=== PATIENT | male | born 1930 | race Caucasian/White ===

== ENCOUNTER → 2016-10-12 | Outpatient (CLI) | payer OTHER ==
[~2016-10-12] MED LIST: IBUP-1277 PO; LEUP30IN3 IM; SAW PALMETTO; calcium; vitamin D; vitamin c
== END | disposition home or self-care (01) ==
LOC: C.LAB 14:19
PROVIDERS: ATTEND Urology
DX: C61 Malignant neoplasm of prostate (principal)

== ENCOUNTER → 2017-05-24 | Outpatient (CLI) | payer OTHER | END | disposition home or self-care (01) | LOC: C.LAB 11:37 | PROVIDERS: ATTEND Urology | DX: C61 Malignant neoplasm of prostate (principal) ==

== ENCOUNTER → 2017-11-15 | Outpatient (CLI) | payer OTHER | END | disposition home or self-care (01) | LOC: C.LAB 11:54 | PROVIDERS: ATTEND Urology | DX: N40.1 Benign prostatic hyperplasia with lower urinary tract symptoms (principal); C61 Malignant neoplasm of prostate ==

== ENCOUNTER 2019-01-24 20:34 | Inpatient (IN) ==
[2019-01-24] MEDS ORDERED: SODIUM CHLORIDE 0.9% 1000ML 1,000 ML IV SCH (21:00)
[2019-01-24] MEDS: MoRPHine SULFATE 4 MG/ML 1 ML CARP\\VIAL IV PRN ×2 (21:28→23:25)
--- NOTE | 2019-01-24 21:29 | XRay Report ---
SINGLE VIEW PELVIS; 2 VIEWS RIGHT HIP CLINICAL HISTORY: Fall. FINDINGS: An AP view of the pelvis with AP and frog-leg views of the right hip are obtained. No prior studies are available for comparison at the time of dictation. The skeletal structures are osteopeni c. There is an impacted and minimally distracted subcapital fracture of the right femur. No additiona l fracture is seen involving the left hip or bony pelvis. Mild degenerative sclerosis is noted in the sacroiliac joints. Degenerative joint space narrowing is seen in both hips. Mild soft tissue edema o verlies the right hip. Phleboliths are noted in the pelvis. Mild degenerative joint there is atherosc lerotic calcification of the femoral arteries. IMPRESSION: 1. There is an impacted subcapital fracture of the right femur. 2. No additional fracture is seen involving the left hip or bony pelvis. Electronically signed by: Jadiel Mast M.D. 01/24/2019 9:28 PM
[2019-01-24 21:34] LABS: Basophils # (auto) 0.02 K/uL (0-0.2); Basophils % (auto) 0.2 %; Eosinophils # (auto) 0.24 K/uL (0-0.5); Hematocrit (blood only) 39.4 % (42-52); Hemoglobin 12.9 g/dL (14.0-18.0); Immature Granulocytes # (auto) 0.03 K/uL (0.00-0.02); Immature Granulocytes % (auto) 0.4 %; Lymphocytes # (auto) 1.21 K/uL (1.2-3.4); Lymphocytes % (auto) 14.9 %; Mean Corpuscular Hgb Conc 32.7 g/dL (32-36); Mean Corpuscular Volume 92.1 fL (80-100); Mean Platelet Volume 11.6 fL (7.4-10.4); Monocytes # (auto) 0.48 K/uL (0.11-0.59); Monocytes % (auto) 5.9 %; Neutrophils # (auto) 6.13 K/uL (1.4-6.5); Neutrophils % (auto) 75.6 %; Platelet Count 145 K/uL (130-400); RDW Coefficient of Variation 15.4 % (11.5-14.5); RDW Standard Deviation 51.4 fL (36.4-46.3); Red Blood Count 4.28 M/uL (4.7-6.1); White Blood Count 8.11 K/uL (4.8-10.8)
[2019-01-24 21:45] LABS: Partial Thromboplastin Ratio 0.8; Prothrombin Time 10.1 Seconds (9.0-12.0)
[2019-01-24 21:49] LABS: BUN Creatinine Ratio 27.8 (10-20); Calcium 9.2 mg/dl (8.5-10.1); Creatinine Clr Calc Pharmacy 30.7 ml/min; Est GFR (African American) 46.7; Est GFR (Non-African American) 40.3
--- NOTE | 2019-01-24 22:39 | History & Physical Report ---
Date of Service January 24, 2019 Assessment & Plan (1) Hip fracture: 88-year-old male here with mechanical fall and subsequent right femur fracture. Plan -Pain control -Place [place] -Consult orthopedics -N.p.o. after midnight with normal saline fluids maintenance to start at 2 AM. FEN/GI: npo after midnight. NSS @100ml/hr to start at 2am tomorrow. DVT ppx: SCDs, chemical prophylaxis held awaiting possible instrumentation tomorrow CODE STATUS: Full as discussed with patient and family DISPO: MedSurg. PT/OT, CM consult placed for coordination of rehab. Other ongoing medical problems: BPH - takes leupron every few months. Baby ASA - hold (2) Fall: (3) BPH (benign prostatic hyperplasia): (4) Hip pain: History of Present Illness Chief Complaint: hip fracture Primary Care Provider: Edi Núñez MD Chay is an 88-year-old male with past history of BPH who presents after mechanical fall at home and right femur fracture. He has full memory of the event and states that he was in his kitchen preparing food when he turned away from the counter and slipped on the linoleum, caught himself by both hands but then his right hip hit the floor. He states he was able to lift himself up off the floor afterwards with the aid of a chair, was able to point his toes with both feet, but was unable to bear any weight. He was brought in to the emergency room for further management. Otherwise he states he has no other symptoms including headache, blurred vision, chest pain, difficulty breathing, abdominal pain, diarrhea or constipation. He endorses some loss of sensation in his right foot. His and daughter are at the bedside. Past surgical history includes Mohs surgery on his right face for basal cell cancer. Social history includes independent with ADLs, jogs, is very active. Retired day care director. ED course: Hip and pelvis x-ray show impacted subcapital fracture of the right femur. Labs are otherwise unremarkable. Has been given 4 mg of morphine and tolerated this well. Allergies Allergy/AdvReac Type Severity Reaction Status Date / Time thimerosal Allergy Unknown HIVES Unverified 01/24/19 22:25 Home Medications Home Medications Medication Instructions Recorded Confirmed Type aspirin [Aspir-81] 81 mg PO DAILY 01/24/19 01/24/19 History leuprolide 30 mg IM Q6M 01/24/19 01/24/19 History Past Med/Surg History Medical History No chronic problems Family History Other No significant family history Social History Preferred Language: Yoruba Communication Ability: Effective Intensive Care Unit Registered Nurse Required: No Beliefs That Will Affect Care: Baptist Baptist Beliefs: Mosque Current Living Situation: Alone Current Living Situation Comment: [place] ~ 4 days/week Other Information That Helps Us Care for You: No Feels Safe at Home: Yes Safety Concerns: Feels Safe At This Time Smoking Status: Never smoker Do You Dip or Chew Tobacco: No Hx Alcohol Use: No Hx Substance Use: No Review of Systems Review of Systems: All systems reviewed & are unremarkable except as noted in HPI & below Physical Exam Physical Exam: Vitals noted and within normal limits with the exception of hypertension. GENERAL: Awake, alert to person, place, and time, nontoxic-appearing, in no distress. HENT: Normocephalic, atraumatic. Mucus membranes appear moist. EYES: Normal conjunctiva. Sclera non-icteric. EOMI. NECK: Supple. Full range of motion. RESPIRATORY: Clear to auscultation. Normal work of breathing. CARDIAC: Regular rate, normal rhythm. Extremities warm and well perfused, 2+ radial pulses bilaterally; 2+ posterior tibialis pulses bilaterally. ABDOMEN: Soft, non-distended. No tenderness to palpation in all four quadrants. No rebound or guarding. No masses. Bowel sounds are normal. LOWER EXTREMITIES: Inspection of calves reveal equal size bilaterally. Right lower extremity with shortening and external rotation. No edema. No discoloration. NEURO: No gross focal motor deficits noted. Sensation in tact. CN II-XII grossly in tact. Decreased sensation in his right foot. SKIN: Rash not present. No jaundice noted. Significant lesions not present. PSYCH: Appropriate mood and affect. Cooperative. Examined with family at the bedside. Exam as done by Africa Gilbert MD, Chlorine Operator. Results & Data Vital Signs (Past 12 Hours) Vital Signs Temp Pulse Resp BP Pulse Ox 01/24/19 20:43 36.6 C 64 20 203/64 H 93 Laboratory Results 01/24/19 01/24/19 01/24/19 Range/Units 21:13 21:13 21:13 WBC 8.11 (4.8-10.8) K/uL RBC 4.28 L (4.7-6.1) M/uL Hgb 12.9 L (14.0-18.0) g/dL Hct 39.4 L (42-52) % MCV 92.1 (80-100) fL MCH 30.1 (25-34) pg MCHC 32.7 (32-36) g/dL RDW Std Deviation 51.4 H (36.4-46.3) fL RDW Coeff of Chay 15.4 H (11.5-14.5) % Plt Count 145 (130-400) K/uL MPV 11.6 H (7.4-10.4) fL Immature Gran % (Auto) 0.4 % Neut % (Auto) 75.6 % Lymph % (Auto) 14.9 % [place] % (Auto) 5.9 % Eos % (Auto) 3.0 % Baso % (Auto) 0.2 % Immature Gran # (Auto) 0.03 H (0.00-0.02) K/uL Neut # (Auto) 6.13 (1.4-6.5) K/uL Lymph # (Auto) 1.21 (1.2-3.4) K/uL [place] # (Auto) 0.48 (0.11-0.59) K/uL Eos # (Auto) 0.24 (0-0.5) K/uL Baso # (Auto) 0.02 (0-0.2) K/uL PT 10.1 (9.0-12.0) Seconds INR 1.0 (0.9-1.1) APTT 23.0 (21.0-31.0) Seconds PTT Ratio 0.8 Sodium 141 (136-145) mmol/L Potassium 4.0 (3.5-5.1) mmol/L Chloride 111 H (98-107) mmol/L Carbon Dioxide 25 (21-32) mmol/L Anion Gap 5.0 (3-11) BUN 43 H (7-18) mg/dl Creatinine 1.53 H (0.6-1.4) mg/dl Est Cr Clr Drug Dosing 30.7 ml/min Est GFR ( Amer) 46.7 Est GFR (Non-Af Amer) 40.3 BUN/Creatinine Ratio 27.8 H (10-20) Glucose 94 (70-99) mg/dl Calcium 9.2 (8.5-10.1) mg/dl ECG Additional Comments: Sinus bradycardia, rate 59, QTc 471. Supervising Physician Co-Signing Physician Notes Pt seen/examined in conjunction with resident MD Anna Gilbert. Orders and plan of admission formulated with resident. 88 y/o M Hx prostate CA and a pronounced murmur. He fell onto his R side earlier in the evening and suffered an impacted subcapital fracture of the right femur. The pt may have poor medical follow-up per his daughter but does state that he exercises daily and denies any heart disease. OE AAO - tangential and repetitious speech. S1,2 3/6 - likely mitral murmur CTAB NT, ND No CCE P: The pt is pending an ortho eval It is difficult to gauge his surgical risk from his history and considering his murmur we have ordered an echo He is hypertensive on admission as well while denying pain. PRN Hydralazine is ordered. Trend BP to determine if he has untreated HTN. PG Care Time/CCT Total # of Minutes Spent Total Time Spent with Patient: Total time spent is greater than 50% in coordination of care (as documented) at patient's floor/unit and/or counseling patient: Resident Activity Tracking Resident Involvement: Resident Care Provided Care Provided: Adult Hospital Medicine (1) Hip fracture Encounter type: initial encounter Fracture type: closed Laterality: right Qualified Code(s): S72.001A - Fracture of unspecified part of neck of right femur, initial encounter for closed fracture (2) Hip pain Laterality: right Qualified Code(s): M25.551 - Pain in right hip (3) Fall Encounter type: initial encounter Qualified Code(s): W19.XXXA - Unspecified fall, initial encounter
[2019-01-24] MEDS ORDERED: ONDANSETRON INJ 2 MG/ML 2 ML VIAL IV PRN (23:56)
[2019-01-24] MEDS ORDERED: ALUMINUM/MAGNESIUM SUSP 30 ML UDC PO PRN (23:56)
[2019-01-24] MEDS ORDERED: ACETAMINOPHEN 325 MG TAB PO PRN (23:56)
[2019-01-24] MEDS ORDERED: HydrALAZINE HCL 20 MG/ML VIAL IV PRN (23:56)
[2019-01-24] MEDS ORDERED: MAGNESIUM HYDROXIDE SUSP 30 ML UDC PO PRN (23:56)
[2019-01-24] MEDS ORDERED: POLYETHYLENE (MIRALAX) 17 GM PACK PO PRN (23:56)
[2019-01-25 00:13] LABS: Appearance Urine Clear (Clear); Bacteria Urine Automated Negative (Negative); Bilirubin Urine Negative (Negative); Cast Urine Automated 0 /lpf (0-5); Color Urine Yellow; Epithelial Cell Urine Auto 0-5 /lpf (0-5); Glucose Urine UA Negative (Negative); Ketones Urine Trace (Negative); Leukocyte Esterase Urine Negative (Negative); Nitrite Urine Negative (Negative); Protein Urine Negative (Negative); Specific Gravity Urine 1.013 (1.000-1.030); Urobilinogen Urine Negative (Negative); WBC Urine Automated 0 /hpf (0-5)
[2019-01-25] MEDS: MoRPHine SULFATE 4 MG/ML 1 ML CARP\\VIAL IV PRN ×4 (00:27→18:31)
[2019-01-25] MEDS: SODIUM CHLORIDE 0.9% 1000ML 1,000 ML IV SCH ×2 (00:30→09:52)
--- NOTE | 2019-01-25 00:44 | Emergency Department Note ---
Entered by Shalom Ye acting as a scribe for Chente Hawkins MD History of Present Illness General Chief complaint: Hip Pain Stated complaint: FALL, R HIP PAIN Time Seen by Provider: 01/24/19 20:40 Source: patient History of Present Illness Onset (ago): day(s) (today) Location: right (hip) Pain Consistency: + constant Maximum Pain Intensity: 10 Associated symptoms: + other (Negative for LOC.) The patient is an 88 year old male who presents to the ED w/ CC of constant right hip pain beginning today. The patient states that his foot stuck to the wet floor today, causing him to trip and fall onto his right side. He notes that he was able to get up off of the floor, but he reports that he cannot put any weight onto his right leg. The patient states that he did not hit his head or lose consciousness. He notes that he takes a baby aspirin. Home Medications Home Medications Medication Instructions Recorded Confirmed Type aspirin [Aspir-81] 81 mg PO DAILY 01/24/19 01/24/19 History leuprolide 30 mg IM Q6M 01/24/19 01/24/19 History Allergies Allergy/AdvReac Type Severity Reaction Status Date / Time thimerosal Allergy Unknown HIVES Unverified 01/24/19 22:25 Past Med/Surg History Medical History No chronic problems Family History Other No significant family history Social History Preferred Language: [place] Islander Communication Ability: Effective Mill Feeder Required: No Beliefs That Will Affect Care: Spiritism Spiritism Beliefs: Faith Current Living Situation: Alone Current Living Situation Comment: [place] ~ 4 days/week Other Information That Helps Us Care for You: No Feels Safe at Home: Yes Safety Concerns: Feels Safe At This Time Smoking Status: Never smoker Do You Dip or Chew Tobacco: No Hx Alcohol Use: No Hx Substance Use: No Review of Systems See HPI for pertinent positives & negatives. and A total of 10 systems reviewed and were otherwise negative Physical Exam Vital Signs Vital Signs - 24 hr 01/24/19 20:43 01/24/19 21:26 01/24/19 21:43 Temperature 36.6 C Temperature Source Oral Sepsis Recent Fever Within 48 Hours No Sepsis Action Taken by Nursing No Action Required Pulse Rate 64 63 63 Pulse Rate from SpO2 Sensor 63 63 Respiratory Rate 20 14 14 Respiratory Effort / Characteristics Non-Labored Respiratory Depth Normal Blood Pressure 203/64 H 197/84 H Blood Pressure Mean 110 121 Pulse Oximetry 93 93 92 Oxygen Delivery Method Room Air 01/24/19 22:00 01/24/19 22:01 Temperature Temperature Source Sepsis Recent Fever Within 48 Hours Sepsis Action Taken by Nursing Pulse Rate 67 66 Pulse Rate from SpO2 Sensor 67 66 Respiratory Rate 15 10 L Respiratory Effort / Characteristics Respiratory Depth Blood Pressure 183/78 H Blood Pressure Mean 113 Pulse Oximetry 94 92 Oxygen Delivery Method GENERAL: Well appearing, well nourished, NAD, non-toxic, rapid speech noted. HEAD: No head pain. EYE EXAM: Normal conjunctiva. PERRL, no anisocoria and EOM's grossly intact w/o pain. OROPHARYNX: Moist mucous membranes. Grossly normal dentition. NECK: Supple, no nuchal rigidity, no adenopathy, non-tender. No signs of meningismus. No neck pain. LUNGS: Clear to auscultation. Normal chest wall mechanics. HEART: NSR, no MRG. ABDOMEN: Abdomen soft, non-tender, normo-active bowel sounds, no masses, no rebound or guarding. BACK: No CVA TTP. SKIN: No rashes and no bruising. UPPER EXTREMITIES: Upper extremities are grossly normal. LOWER EXTREMITIES: No pitting edema. No calf pain. Legs appear symmetric in length, pain over right hip and proximal thigh, compartments soft, NVI distally, limited ROM secondary to pain. NEURO EXAM: A&O x3, cranial nerves II-XII grossly intact, normal speech, moves all 4 extremities on command w/o issue. Course 2044: The patient was evaluated in room B4. A complete history and physical exam was performed. 2152: Upon reevaluation, the patient is stable. I discussed the findings and the treatment plan with the patient. He expresses agreement and understanding. I spoke with Dr. Patino of the [facility] Hospitalist Service. The patient will be evaluated for further management. Consultations Consultation #1: I reviewed the patient's case with Dr. Patino - Hospitalist, [facility]. He will evaluate the patient for further management. Time: 21:53 Administered Medications Morphine Sulfate (Morphine Sulfate) 4 mg IV Q1H PRN PRN Reason: Severe Pain (Rating 7,8,9,10) Stop: 02/07/19 20:55 Last Admin: 01/25/19 00:27 Dose: 4 mg Documented by: [id number] Admin: 01/24/19 23:25 Dose: 4 mg Documented by: [id number] Admin: 01/24/19 21:28 Dose: 4 mg Documented by: [id number] Discontinued Medications Sodium Chloride (Nss 1000ml) 1,000 mls @ 150 mls/hr IV .[id number] KASSANDRA Stop: 01/25/19 03:39 Last Infusion: 01/24/19 23:58 Dose: 0 mls/hr Documented by: [id number] Admin: 01/24/19 21:27 Dose: 150 mls/hr Documented by: [id number] Medical Decision Making Medical Records Attestation: I reviewed the patient's medical records. Home Medications Current Medication List: was personally reviewed by me Laboratory Data Attestation: I reviewed the patient's lab results. Result diagrams: 01/24/19 21:13 01/24/19 21:13 Lab Results 01/24/19 01/24/19 01/24/19 Range/Units 21:13 21:13 21:13 WBC 8.11 (4.8-10.8) K/uL RBC 4.28 L (4.7-6.1) M/uL Hgb 12.9 L (14.0-18.0) g/dL Hct 39.4 L (42-52) % MCV 92.1 (80-100) fL MCH 30.1 (25-34) pg MCHC 32.7 (32-36) g/dL RDW Std Deviation 51.4 H (36.4-46.3) fL RDW Coeff of Chay 15.4 H (11.5-14.5) % Plt Count 145 (130-400) K/uL MPV 11.6 H (7.4-10.4) fL Immature Gran % (Auto) 0.4 % Neut % (Auto) 75.6 % Lymph % (Auto) 14.9 % [place] % (Auto) 5.9 % Eos % (Auto) 3.0 % Baso % (Auto) 0.2 % Immature Gran # (Auto) 0.03 H (0.00-0.02) K/uL Neut # (Auto) 6.13 (1.4-6.5) K/uL Lymph # (Auto) 1.21 (1.2-3.4) K/uL [place] # (Auto) 0.48 (0.11-0.59) K/uL Eos # (Auto) 0.24 (0-0.5) K/uL Baso # (Auto) 0.02 (0-0.2) K/uL PT 10.1 (9.0-12.0) Seconds INR 1.0 (0.9-1.1) APTT 23.0 (21.0-31.0) Seconds PTT Ratio 0.8 Sodium 141 (136-145) mmol/L Potassium 4.0 (3.5-5.1) mmol/L Chloride 111 H (98-107) mmol/L Carbon Dioxide 25 (21-32) mmol/L Anion Gap 5.0 (3-11) BUN 43 H (7-18) mg/dl Creatinine 1.53 H (0.6-1.4) mg/dl Est Cr Clr Drug Dosing 30.7 ml/min Est GFR ( Amer) 46.7 Est GFR (Non-Af Amer) 40.3 BUN/Creatinine Ratio 27.8 H (10-20) Glucose 94 (70-99) mg/dl Calcium 9.2 (8.5-10.1) mg/dl Imaging Data Radiologist's Impression: Radiology results as stated below per my review and the radiologist's interpretation: SINGLE VIEW PELVIS; 2 VIEWS RIGHT HIP FINDINGS: An AP view of the pelvis with AP and frog-leg views of the right hip are obtained. No prior studies are available for comparison at the time of dictation. The skeletal structures are osteopenic. There is an impacted and minimally distracted subcapital fracture of the right femur. No additional fracture is seen involving the left hip or bony pelvis. Mild degenerative sclerosis is noted in the sacroiliac joints. Degenerative joint space narrowing is seen in both hips. Mild soft tissue edema overlies the right hip. Phleboliths are noted in the pelvis. Mild degenerative joint there is atherosclerotic calcification of the femoral arteries. IMPRESSION: 1. There is an impacted subcapital fracture of the right femur. 2. No additional fracture is seen involving the left hip or bony pelvis. Electronically signed by: Jadiel Mast M.D. 01/24/2019 9:28 PM ECG Data Attestation: I personally reviewed and interpreted this ECG as follows: Indication: other (fall) Rate (beats per minute): 72 Rhythm: normal sinus Findings: + T-wave inversion (in lead 3) Additional Comments: Normal intervals, normal axis, no STS changes. Blood Pressure Blood Pressure Findings: Elevated blood pressure Blood Pressure Disposition: further management by hospitalist VAUGHN Quach The patient is an 88 year old male who presents to the ED w/ CC of right hip pain beginning today. Differential diagnosis: Etiologies such as fracture, dislocation, neurovascular compromise, compartment syndrome, soft tissue injury, as well as others were entertained. Patient was seen and evaluated the bedside. The patient did have a fall prior to arrival. The patient does take a baby aspirin but no other anticoagulant. The patient does have pain over the right hip. The patient does not appear to be asymmetric in length. The patient is neuro intact distally with some decreased range of motion of the right hip secondary to pain. Patient does have good flexion-extension at the ankle. Good pedal pulse. The patient did a blood work completed along with x-rays. The patient does have a hip fracture. I did ask the caser in to inform orthopedics unassigned of a possible case in the morning. The patient's injury is closed with a neuro intact status I do not believe she requires emergent intervention at this time. I did speak with the on-call hospitalist who agreed to further evaluate treat the patient. Patient was subsequently admitted to the medicine service. Impression & Plan Hip fracture, Fall, Hip pain Discharge Plan Visit Data *Final* Discharge Date/Time: 01/24/19 23:30 Chief Complaint: Hip Pain Stated Complaint: FALL, R HIP PAIN ED Provider: Chente Hawkins Discharge Problem: Hip fracture, Fall, Hip pain Patient Disposition: Admitted As Inpatient Discharge Instructions Interventions: ED Discharge Assessment Last Done: 01/24/19 23:30 Discharge Problem: Hip fracture Qualifiers: Encounter type: initial encounter Fracture type: closed Laterality: right Qualified Code(s): S72.001A - Fracture of unspecified part of neck of right femur, initial encounter for closed fracture Fall Qualifiers: Encounter type: initial encounter Qualified Code(s): W19.XXXA - Unspecified fall, initial encounter Hip pain Qualifiers: Laterality: right Qualified Code(s): M25.551 - Pain in right hip The scribe's documentation has been prepared under my direction and personally reviewed by me in its entirety. I confirm that the note above accurately reflects all work, treatment, procedures, and medical decision making performed by me.
[2019-01-25] MEDS ORDERED: Nursing to Pharmacy Communication ONE (09:39)
--- NOTE | 2019-01-25 12:35 | Consultation Report ---
DATE OF ADMISSION: 01/24/2019 CHIEF COMPLAINT: Right hip pain, orthopedic and concern of right hip pain and hip fracture. HISTORY OF PRESENT ILLNESS: Chay is a delightful. He is 88, fully cognizant. He has a ground level fall injuring his right femur late last evening, suffered a displaced fracture, right femoral neck. He was brought to the hospital via emergency transport, evaluated and treated, courtesy admitted to the medicine service. We are serving as consulting physician. He presents to me today seeing him about 11:30 in the morning of today, January 25 with moderate hip pain, but no difficulty at rest. PAST MEDICAL HISTORY: No hypertension, COPD, diabetes, carcinoma. MEDICATIONS: Aspirin, leuprolide. ALLERGIES: THIMEROSAL. PAST SURGICAL HISTORY: He does have a history of Mohs procedure for basal cell carcinoma. REVIEW OF SYSTEMS: Denies any blurred vision, double vision, tinnitus or vertigo. Denies chest pain, palpitations. Denies nausea, vomiting, urgency, frequency, dysuria. OBJECTIVE: GENERAL: He is alert, oriented, pleasant gentleman. VITAL SIGNS: Stable. Blood pressure elevated, though 200/64 upon admission is decreased at this point. Pulse ox 93, pulse 64, respirations 20, temperature is afebrile. HEENT: Pupils react to light and accommodation. Ear, nose and throat are clear. CARDIAC: Normal S1, S2. No S3. LUNGS: Clear to auscultation. No rales, rhonchi or wheezing. ABDOMEN: Soft, nontender, bowel sounds present in all quadrants. EXTREMITIES: His right hip actually lined up fairly well, slight shortening, but no gross external or internal rotation. X-rays demonstrate a displaced femoral neck fracture of the right hip. IMPRESSION: Right femoral neck fracture, otherwise healthy gentleman, slightly elevated hypertension, probably secondary to pain. PLAN: He is admitted to the medical service. Plan is getting him to orthopedic surgery later on this afternoon. Dr. Contreras has elected to do his surgery and should commence approximately 3:00 or 4:00 this afternoon.
[2019-01-25] MEDS ORDERED: CEFAZOLIN 2000MG 2,000 MG/15 ML SYR IV ONE (14:27)
[2019-01-25] MEDS ORDERED: CEFAZOLIN 2,000 MG/15 ML IV PUSH IV ONE (14:28)
[2019-01-25] MEDS ORDERED: LIDOCAINE HCL 2% 2 ML VIAL/AMP(20MG/ML) INFIL ONE (14:33)
[2019-01-25] MEDS ORDERED: PROPOFOL IV EMULSION 10 MG/ML 20 ML VIAL IV ONE (14:33)
[2019-01-25] MEDS ORDERED: fentaNYL citrate 100 MCG/2 ML VIAL ONE ×2 (14:33→17:29)
[2019-01-25] MEDS ORDERED: MIDAZOLAM HCL 1 MG/ML 2ML VIAL ONE ×2 (14:33→17:28)
--- NOTE | 2019-01-25 14:36 | Hospitalist Progress Note ---
Date of Service January 25, 2019 Assessment & Plan (1) Hip fracture: This pt is an 88-year-old male with a h/o prostate CA and enlarged prostate here with mechanical fall and subsequent right femur fracture. Appreciate Ortho management-plan for surgery today He is quite active with no cardiac history. He does have moderate MR and MVP, mod PHTN, preserved EF with mild hypokinesis mid-apical wall. He can easily achieve >4 METS and has never had angina or dyspnea on exertion. His functional capacity is excellent for age and his valvular issues are not limiting. He is at average risk for perioperative CV complication and due to the hip fracture and high risk of complication if he doesn't have repair, it is recommended that he proceed with hip repair as planned without further evaluation. His valvular disease can be followed as an outpt Discussed this with pt and his daughter at the bedside. -will need preop antibiotics -pain control, bowel regimen -post-op management as per Ortho -continue IVFs -ASA from home was held for surgery but can be restarted for DVT prophylaxis post-op (2) Fall: (3) History of prostate cancer: -is on lupron (4) Mitral regurgitation: moderate on ECHO, with murmur Not limiting, no CHF Follow clinically and as outpt (5) Mitral valve prolapse: on ECHO (6) Pulmonary hypertension: on ECHO, not limiting, no chronic lung disease, unclear cause (7) DVT prophylaxis: SCDs Dispo-remain hospitalized for hip fracture repair Subjective Pt having pain in right hip but otherwise feels weell. Reports he jogs in place in his basement frequently and never has chest pain or SOB with this. He was told he had a "slight murmur" 3 years ago by his PCP. Denies any cardiac issues. Review of Systems Review of Systems: All systems reviewed & are unremarkable except as noted in HPI & below Physical Exam Constitutional: WD/WN, vitals as above Eyes: PERRL, conjunctivae normal, anicteric sclerae ENMT: external ear and nose normal, oropharynx normal Neck: trachea midline, no thyromegaly Respiratory: normal respiratory effort, lungs clear to auscultation Cardiovascular: Rate/Rhythm: regular rate and regular rhythm Heart Sounds: + murmur (3/6 holosystolic murmur at apex) Gastrointestinal (Abdomen): normal bowel sounds, soft, nontender, no hepatosplenomegaly Musculoskeletal: Extremities: + extremities abnormal to inspection (mild shortening of RLE, no TTP over right hip), no cyanosis and no clubbing Skin: no rashes, warm and dry Neurologic: moves all extremities (can move feet, not moving right hip) and awake Psychiatric: A+Ox3, euthymic affect Genitourinary: no testicular masses, no penis abnormality (with condom catheter in place) Results & Data Vital Signs (Past 12 Hours) Vital Signs Temp Pulse Resp BP BP Pulse Ox 01/25/19 08:08 140/67 01/25/19 07:15 37.1 C 65 16 180/76 H 93 Laboratory Results 01/25/19 01/24/19 01/24/19 Range/Units 00:00 21:13 21:13 WBC (4.8-10.8) K/uL RBC (4.7-6.1) M/uL Hgb (14.0-18.0) g/dL Hct (42-52) % MCV (80-100) fL MCH (25-34) pg MCHC (32-36) g/dL RDW Std Deviation (36.4-46.3) fL RDW Coeff of Chay (11.5-14.5) % Plt Count (130-400) K/uL MPV (7.4-10.4) fL Immature Gran % (Auto) % Neut % (Auto) % Lymph % (Auto) % Ida % (Auto) % Eos % (Auto) % Baso % (Auto) % Immature Gran # (Auto) (0.00-0.02) K/uL Neut # (Auto) (1.4-6.5) K/uL Lymph # (Auto) (1.2-3.4) K/uL Ida # (Auto) (0.11-0.59) K/uL Eos # (Auto) (0-0.5) K/uL Baso # (Auto) (0-0.2) K/uL PT 10.1 (9.0-12.0) Seconds INR 1.0 (0.9-1.1) APTT 23.0 (21.0-31.0) Seconds PTT Ratio 0.8 Sodium 141 (136-145) mmol/L Potassium 4.0 (3.5-5.1) mmol/L Chloride 111 H (98-107) mmol/L Carbon Dioxide 25 (21-32) mmol/L Anion Gap 5.0 (3-11) BUN 43 H (7-18) mg/dl Creatinine 1.53 H (0.6-1.4) mg/dl Est Cr Clr Drug Dosing 30.7 ml/min Est GFR ( Amer) 46.7 Est GFR (Non-Af Amer) 40.3 BUN/Creatinine Ratio 27.8 H (10-20) Glucose 94 (70-99) mg/dl Calcium 9.2 (8.5-10.1) mg/dl Urine Color Yellow Urine Appearance Clear (Clear) Urine pH 6.0 (4.5-7.5) Ur Specific [place] 1.013 (1.000-1.030) Urine Protein Negative (Negative) Urine Glucose (UA) Negative (Negative) Urine Ketones Trace H (Negative) Urine Blood Trace H (Negative) Urine Nitrite Negative (Negative) Urine Bilirubin Negative (Negative) Urine Urobilinogen Negative (Negative) Ur Leukocyte Esterase Negative (Negative) Urine WBC (Auto) 0 (0-5) /hpf Urine RBC (Auto) 0-4 (0-4) /hpf U Hyaline Cast (Auto) 0 (0-5) /lpf U Epithel Cells (Auto) 0-5 (0-5) /lpf Urine Bacteria (Auto) Negative (Negative) 01/24/19 Range/Units 21:13 WBC 8.11 (4.8-10.8) K/uL RBC 4.28 L (4.7-6.1) M/uL Hgb 12.9 L (14.0-18.0) g/dL Hct 39.4 L (42-52) % MCV 92.1 (80-100) fL MCH 30.1 (25-34) pg MCHC 32.7 (32-36) g/dL RDW Std Deviation 51.4 H (36.4-46.3) fL RDW Coeff of Chay 15.4 H (11.5-14.5) % Plt Count 145 (130-400) K/uL MPV 11.6 H (7.4-10.4) fL Immature Gran % (Auto) 0.4 % Neut % (Auto) 75.6 % Lymph % (Auto) 14.9 % Ida % (Auto) 5.9 % Eos % (Auto) 3.0 % Baso % (Auto) 0.2 % Immature Gran # (Auto) 0.03 H (0.00-0.02) K/uL Neut # (Auto) 6.13 (1.4-6.5) K/uL Lymph # (Auto) 1.21 (1.2-3.4) K/uL Ida # (Auto) 0.48 (0.11-0.59) K/uL Eos # (Auto) 0.24 (0-0.5) K/uL Baso # (Auto) 0.02 (0-0.2) K/uL PT (9.0-12.0) Seconds INR (0.9-1.1) APTT (21.0-31.0) Seconds PTT Ratio Sodium (136-145) mmol/L Potassium (3.5-5.1) mmol/L Chloride (98-107) mmol/L Carbon Dioxide (21-32) mmol/L Anion Gap (3-11) BUN (7-18) mg/dl Creatinine (0.6-1.4) mg/dl Est Cr Clr Drug Dosing ml/min Est GFR ( Amer) Est GFR (Non-Af Amer) BUN/Creatinine Ratio (10-20) Glucose (70-99) mg/dl Calcium (8.5-10.1) mg/dl Urine Color Urine Appearance (Clear) Urine pH (4.5-7.5) Ur Specific [place] (1.000-1.030) Urine Protein (Negative) Urine Glucose (UA) (Negative) Urine Ketones (Negative) Urine Blood (Negative) Urine Nitrite (Negative) Urine Bilirubin (Negative) Urine Urobilinogen (Negative) Ur Leukocyte Esterase (Negative) Urine WBC (Auto) (0-5) /hpf Urine RBC (Auto) (0-4) /hpf U Hyaline Cast (Auto) (0-5) /lpf U Epithel Cells (Auto) (0-5) /lpf Urine Bacteria (Auto) (Negative) Diagnostic Findings ECHO with LVEF 50-55%, mild mid-apical hypokinesis, mod MR with MVP, mod PHTN ECG reviewed: SB, 1st degree AV block, no ischemic changes PG Care Time/CCT Total # of Minutes Spent Total Time Spent with Patient: Total time spent is greater than 50% in coordination of care (as documented) at patient's floor/unit and/or counseling patient: (1) Hip fracture Encounter type: initial encounter Fracture type: closed Laterality: right Qualified Code(s): S72.001A - Fracture of unspecified part of neck of right femur, initial encounter for closed fracture (2) Fall Encounter type: initial encounter Qualified Code(s): W19.XXXA - Unspecified fall, initial encounter
--- NOTE | 2019-01-25 14:50 | History & Physical Bridge Note ---
Date of Service January 25, 2019 History & Physical Bridge Note I have examined the patient, reviewed the History & Physical and in the interval since the performance of the History & Physical I have noted the following changes of clinical significance: Specifically, I will be doing a right hip hemiarthroplasty.
--- NOTE | 2019-01-25 14:59 | Anesthesiology Consultation ---
Date of Service January 25, 2019 Assessment & Plan Chart Review Chart Review: Acceptable Risk for Surgery and Patient NOT seen in Pre Admission Testing Consults Requested none ASA ASA3 Proposed Anesthesia Anesthesia Type: MAC Spinal Risk / Benefits Reviewed With: PT / POA / Parent / Guardian, Accepts Plan and Informed Consent Obtained History Surgery Operation Date: 01/25/19 13:30 Proposed Procedures p Right Anterior Total Hip Arthroplasty - Mario Contreras DO Height/Weight Height: 5 ft 6 in Weight: 66.9 kg Allergies Allergy/AdvReac Type Severity Reaction Status Date / Time thimerosal Allergy Unknown HIVES Unverified 01/24/19 22:25 Medications Home Medications Medication Instructions Recorded Confirmed Last Taken aspirin [Aspir-81] 81 mg PO DAILY 01/24/19 01/24/19 Unknown leuprolide 30 mg IM Q6M 01/24/19 01/24/19 05/25/18 Active Medications Generic Name Dose Route Start Last Admin Trade Name Freq PRN Reason Stop Dose Admin Hydralazine HCl 5 mg 01/24/19 23:56 01/25/19 07:30 Hydralazine Hcl IV 02/23/19 23:55 5 mg Q4H PRN Administration Hypertension Sodium Chloride 1,000 mls @ 100 mls/hr 01/25/19 02:00 01/25/19 09:52 Nss 1000ml IV 02/24/19 01:59 100 mls/hr .Q10H KASSANDRA Administration Morphine Sulfate 4 mg 01/24/19 20:56 01/25/19 09:32 Morphine Sulfate IV 02/07/19 20:55 4 mg Q1H PRN Administration Severe Pain (Rating 7,8,9,10) NPO Date Last Intake of Fluids: 01/24/19 Time Last Intake of Fluids: 22:00 Date Last Intake of Solids: 01/24/19 Time Last Intake of Solids: 22:00 Past Medical History Medical History No chronic problems Exercise / Class Metabolic Activity III < 4 Walking/Shop/Light housework Past Family History Family History Other No significant family history Past Anesthesia History No Hx of Anesthesia Complications and No Family Hx of Anesthesia Complications Social History Smoking Status: Never smoker Do You Dip or Chew Tobacco: No Hx Alcohol Use: No Alcohol Intake Frequency Comment: quit 1972 Hx Substance Use: No Physical Exam Vital Signs Last Vital Signs Temp 36.5 C 01/25/19 14:51 Pulse 77 01/25/19 14:51 Resp 16 01/25/19 14:51 BP 147/78 H 01/25/19 14:51 Pulse Ox 90 01/25/19 14:51 ENMT Mouth: no dentition abnormality Thyromental Distance: > or= 3.5 Finger Breadths Mallampati Class: II Neck normal visual inspection and trachea midline; neck extension not limited Respiratory normal respiratory effort Auscultation: lungs clear to auscultation bilaterally Cardiovascular Rate/Rhythm: regular rate and regular rhythm Heart Sounds: + murmur (at apex) Vessels: no carotid bruit Musculoskeletal Spine: normal cervical ROM Neurologic moves all extremities Motor/Sensory: no sensory deficit Psychiatric Orientation: alert and oriented x 3 Testing Laboratory Results 01/24/19 21:13 01/24/19 21:13 PT 10.1 Seconds (9.0-12.0) 01/24/19 21:13 INR 1.0 (0.9-1.1) 01/24/19 21:13 APTT 23.0 Seconds (21.0-31.0) 01/24/19 21:13 Urine Color Yellow 01/25/19 00:00 Urine Appearance Clear (Clear) 01/25/19 00:00 Urine pH 6.0 (4.5-7.5) 01/25/19 00:00 Ur Specific [place] 1.013 (1.000-1.030) 01/25/19 00:00 Urine Protein Negative (Negative) 01/25/19 00:00 Urine Glucose (UA) Negative (Negative) 01/25/19 00:00 Urine Ketones Trace (Negative) H 01/25/19 00:00 Urine Nitrite Negative (Negative) 01/25/19 00:00 Ur Leukocyte Esterase Negative (Negative) 01/25/19 00:00 Urine WBC (Auto) 0 /hpf (0-5) 01/25/19 00:00 Urine RBC (Auto) 0-4 /hpf (0-4) 01/25/19 00:00 U Hyaline Cast (Auto) 0 /lpf (0-5) 01/25/19 00:00 U Epithel Cells (Auto) 0-5 /lpf (0-5) 01/25/19 00:00 Urine Bacteria (Auto) Negative (Negative) 01/25/19 00:00 Electrocardiogram Date: 01/24/19 Findings: + SB @ (at 59 w / 1st degree AVB) Echocardiogram Date: 01/25/19 EF: 50 Other Findings: + LVH (mild) Valvular Disease: + AI (mild - moderate), + MR (moderate) and + pertinent finding (moderate pulmonary HTN)
[2019-01-25] MEDS ORDERED: LACTATED RINGER'S 1,000 ML IV SCH (15:00)
[2019-01-25] MEDS ORDERED: KETAMINE HCL INJ 50 MG/ML 10 ML VIAL ONE (15:10)
[2019-01-25] MEDS ORDERED: ASPIRIN 81 MG ECTAB PO SCH (16:00)
[2019-01-25] MEDS ORDERED: METOPROLOL TARTRATE 1 MG/ML VIAL IV ONE (16:09)
[2019-01-25] MEDS: METOPROLOL TARTRATE 1 MG/ML VIAL IV SCH ×2 (16:11→18:38)
[2019-01-25] MEDS ORDERED: NiCARDipine HCL INJ 2.5 MG/ML 10 ML AMP ONE (17:29)
[2019-01-25] MEDS ORDERED: NITROGLYCERIN/D5W 100MCG/ML 20ML SYR ONE (17:29)
[2019-01-25] MEDS ORDERED: HEPARIN (PORCINE) 1000 UNIT/ML 10 ML (CATH LAB USE ONLY) ONE (17:29)
--- NOTE | 2019-01-25 17:33 | Anesthesiology Progress Note ---
Date of Service January 25, 2019 Pt was scheduled to have a right hip fx ORIF. Chart reviewed ,pt seen and examined. Informed consent was obtained. In OR ,pt was placed in LLD position after ketamine 10 mg iv was administered. Using sterile technique and gown,SAB was attempted x 4 times,but unsuccessful secondary to bone. Further attempts at SAB were aborted. It was decided to administer a GETA. PT was moved to OR table when I noticed EKG changes ,specifically, ST depressions in Lead 11.I ordered a stat 12 lead EKG, which showed ST depressions and ischemia in anterolateral leads. I cancelled case. Pt was transferred to PACU. I ordered Troponins stat. I called Dr Rosette Duffy and discussed the case with her and she arrived soon thereafter.Dr Duffy assum ed care and contacted cardiology. Physical Exam Vital Signs: Last Vital Signs Temp 36.3 C L 01/25/19 16:35 Pulse 67 01/25/19 16:35 Resp 19 01/25/19 16:35 BP 140/73 01/25/19 16:35 Pulse Ox 95 01/25/19 16:35 Results & Data Medications Administered Aspirin (Ecotrin Ectab) 81 mg PO DAILY [facility] Stop: 02/24/19 15:59 Last Admin: 01/25/19 16:35 Dose: 81 mg Documented by: [id number] Hydralazine HCl (Hydralazine Hcl) 5 mg IV Q4H PRN PRN Reason: Hypertension Stop: 02/23/19 23:55 Last Admin: 01/25/19 07:30 Dose: 5 mg Documented by: [id number] Sodium Chloride (Nss 1000ml) 1,000 mls @ 100 mls/hr IV .Q10H KASSANDRA Stop: 02/24/19 01:59 Last Infusion: 01/25/19 14:45 Dose: 0 mls/hr Documented by: [id number] Admin: 01/25/19 09:52 Dose: 100 mls/hr Documented by: [id number] Infusion: 01/25/19 09:01 Dose: 0 mls/hr Documented by: [id number] Admin: 01/25/19 00:30 Dose: 100 mls/hr Documented by: [id number] Metoprolol Tartrate (Lopressor) 5 mg IV Q6H KASSANDRA Stop: 02/24/19 15:59 Last Admin: 01/25/19 16:11 Dose: 5 mg Documented by: [id number] Morphine Sulfate (Morphine Sulfate) 4 mg IV Q1H PRN PRN Reason: Severe Pain (Rating 7,8,9,10) Stop: 02/07/19 20:55 Last Admin: 01/25/19 09:32 Dose: 4 mg Documented by: [id number] Admin: 01/25/19 07:30 Dose: 4 mg Documented by: [id number] Admin: 01/25/19 00:27 Dose: 4 mg Documented by: [id number] Admin: 01/24/19 23:25 Dose: 4 mg Documented by: [id number] Admin: 01/24/19 21:28 Dose: 4 mg Documented by: [id number]
--- NOTE | 2019-01-25 17:34 | Anesthesiology Progress Note ---
Date of Service January 25, 2019 Anesthesia Post Procedure Vital Signs Vital Signs: Temp Pulse Pulse Pulse Resp BP BP 01/25/19 16:35 36.3 C L 67 19 140/73 01/25/19 16:25 66 16 147/79 H 01/25/19 16:15 72 18 153/73 H 01/25/19 16:11 80 135/75 01/25/19 16:05 81 12 136/62 01/25/19 15:55 85 17 162/86 H 01/25/19 15:48 36.1 C L 82 13 164/89 H 01/25/19 14:51 36.5 C 77 16 01/25/19 08:08 140/67 01/25/19 07:15 37.1 C 65 16 01/24/19 23:45 36.9 C 68 16 159/79 H 01/24/19 23:30 69 69 18 173/73 H 01/24/19 23:26 71 16 01/24/19 23:01 69 25 H 01/24/19 23:00 71 22 211/89 H 01/24/19 22:01 66 10 L 01/24/19 22:00 67 15 183/78 H 01/24/19 21:43 63 14 01/24/19 21:26 63 14 197/84 H 01/24/19 20:43 36.6 C 64 20 203/64 H BP Pulse Ox 01/25/19 16:35 95 01/25/19 16:25 94 01/25/19 16:15 95 01/25/19 16:11 01/25/19 16:05 92 01/25/19 15:55 96 01/25/19 15:48 92 01/25/19 14:51 147/78 H 90 01/25/19 08:08 01/25/19 07:15 180/76 H 93 01/24/19 23:45 90 01/24/19 23:30 172/73 H 99 01/24/19 23:26 172/79 H 98 01/24/19 23:01 01/24/19 23:00 01/24/19 22:01 92 01/24/19 22:00 94 01/24/19 21:43 92 01/24/19 21:26 93 01/24/19 20:43 93 Pain Intensity Right Hip: Pain Intensity: 10 Transfer of Care Handoff Completed per policy Notes Mental Status: alert / awake / arousable Patient Amnestic to Procedure: Yes Nausea / Vomiting: adequately controlled Pain: adequately controlled Airway Patency, RR, SpO2: stable & adequate BP & HR: stable & adequate Hydration State: stable & adequate Anesthetic Complications: no major complications apparent Notes: see progress note
--- NOTE | 2019-01-25 17:35 | XRay Report ---
XR chest 1V portable CLINICAL HISTORY: HERAT ALERT ATYPICAL CHEST PAIN COMPARISON STUDY: No previous studies for comparison. FINDINGS: The heart is mildly enlarged. There is no failure. There is no lobar consolidation. Bilater al upper lung zone lying shadows likely represent skin folds. There are biapical calcifications. Ther e are no pleural effusions.[ IMPRESSION: 1. Mild cardiomegaly 2. No evidence of focal pulmonary consolidation 3. Bilateral line shadows, are felt to represent skin folds Electronically signed by: Kashmir Liao M.D. 01/25/2019 5:33 PM
[2019-01-25] MEDS ORDERED: NITROGLYCERIN/D5W 100 MCG/ML BTL ONE (18:00)
[2019-01-25] MEDS ORDERED: HEPARIN 25000 UNIT/500 ML D5W IV ONE (18:00)
--- NOTE | 2019-01-25 18:18 | Pre Anesthesia Assessment ---
Date of Service January 25, 2019 Pre Sedation Assessment Vital Signs Temp Pulse Pulse Pulse Resp BP BP 01/25/19 16:35 36.3 C L 67 19 140/73 01/25/19 16:25 66 16 147/79 H 01/25/19 16:15 72 18 153/73 H 01/25/19 16:11 80 135/75 01/25/19 16:05 81 12 136/62 01/25/19 15:55 85 17 162/86 H 01/25/19 15:48 36.1 C L 82 13 164/89 H 01/25/19 14:51 36.5 C 77 16 01/25/19 08:08 140/67 01/25/19 07:15 37.1 C 65 16 01/24/19 23:45 36.9 C 68 16 159/79 H 01/24/19 23:30 69 69 18 173/73 H 01/24/19 23:26 71 16 01/24/19 23:01 69 25 H 01/24/19 23:00 71 22 211/89 H 01/24/19 22:01 66 10 L 01/24/19 22:00 67 15 183/78 H 01/24/19 21:43 63 14 01/24/19 21:26 63 14 197/84 H 01/24/19 20:43 36.6 C 64 20 203/64 H BP Pulse Ox 01/25/19 16:35 95 01/25/19 16:25 94 01/25/19 16:15 95 01/25/19 16:11 01/25/19 16:05 92 01/25/19 15:55 96 01/25/19 15:48 92 01/25/19 14:51 147/78 H 90 01/25/19 08:08 01/25/19 07:15 180/76 H 93 01/24/19 23:45 90 01/24/19 23:30 172/73 H 99 01/24/19 23:26 172/79 H 98 01/24/19 23:01 01/24/19 23:00 01/24/19 22:01 92 01/24/19 22:00 94 01/24/19 21:43 92 01/24/19 21:26 93 01/24/19 20:43 93 Cardiovascular RRR, no murmur, no edema Respiratory normal respiratory effort, lungs clear to auscultation Pre-Sedation Airway Assessment Smoking Status: Never smoker Hx Sleep Apnea: No Hx Difficult Intubation: No Short, Thick Neck: No Thyromental Distance: > or= 3.5 Finger Breadths Mallampati Class: II Procedure Planning Contraindications for Sedation: none Current Medications Reviewed: Yes Notes The planned sedation has been discussed with the patient. Informed Consent was obtained. I have identified the patient, determined the appropriateness of sedation and have assessed the patient immediately prior to the procedure. All medicine(s) and interventions are by my order.
--- NOTE | 2019-01-25 18:19 | Post Anesthesia Assessment ---
Date of Service January 25, 2019 Post Sedation Assessment Vital Signs Temp Pulse Pulse Pulse Resp BP BP 01/25/19 16:35 36.3 C L 67 19 140/73 01/25/19 16:25 66 16 147/79 H 01/25/19 16:15 72 18 153/73 H 01/25/19 16:11 80 135/75 01/25/19 16:05 81 12 136/62 01/25/19 15:55 85 17 162/86 H 01/25/19 15:48 36.1 C L 82 13 164/89 H 01/25/19 14:51 36.5 C 77 16 01/25/19 08:08 140/67 01/25/19 07:15 37.1 C 65 16 01/24/19 23:45 36.9 C 68 16 159/79 H 01/24/19 23:30 69 69 18 173/73 H 01/24/19 23:26 71 16 01/24/19 23:01 69 25 H 01/24/19 23:00 71 22 211/89 H 01/24/19 22:01 66 10 L 01/24/19 22:00 67 15 183/78 H 01/24/19 21:43 63 14 01/24/19 21:26 63 14 197/84 H 01/24/19 20:43 36.6 C 64 20 203/64 H BP Pulse Ox 01/25/19 16:35 95 01/25/19 16:25 94 01/25/19 16:15 95 01/25/19 16:11 01/25/19 16:05 92 01/25/19 15:55 96 01/25/19 15:48 92 01/25/19 14:51 147/78 H 90 01/25/19 08:08 01/25/19 07:15 180/76 H 93 01/24/19 23:45 90 01/24/19 23:30 172/73 H 99 01/24/19 23:26 172/79 H 98 01/24/19 23:01 01/24/19 23:00 01/24/19 22:01 92 01/24/19 22:00 94 01/24/19 21:43 92 01/24/19 21:26 93 01/24/19 20:43 93 Recovery Score Activity: Moves 4 extremities Respiration: Deep Breath/Cough Circulation: +/-20% PreAnes Value Consciousness: Fully Awake Oxygen Saturation: O2 needed for >90% Post Anesthesia Score: 9 Discharge Sedation Level of Care: Fast Track Phase II Post Sedation Plan On clinical assessment, the patient appears to have tolerated the sedation without complications. Patient is recovering as anticipated. Patient will continue to be monitored by nursing and may be discharged when sedation discharge criteria are met per below protocol. Upon Completions of procedure and additional 15 minutes continue every 5 minute vital signs and the P.A.R. score; then discharge to a Phase I or Fast Track to Phase II per the following guidelines: * Discharge Patient to appropriate Phase II area if PAR is 8 or greater or return to pre- procedure baseline. The post - procedure orders will be as directed. * If PAR score is less than 8 or not return to pre-procedure baseline then patient will follow Phase I monitoring till PAR is reached for Phase II. The Phase I may be done in procedure room or may call to secure a Phase I area. * If naloxone or flumazenil are used for reversal, hold in Phase I for continued monitoring from when last reversal dose was given for a minimum of 60 minutes or longer pending the nurse and/or physician discretion of patient condition before discharge to Phase II. Please call the Sedation Physician to re-evaluate and complete post-note for discharge to Phase II area. Do NOT discharge from procedure sedation or Phase 1 until post- sedation evaluation note is complete by procedure /sedation MD Sedation Discharge Instructions to be given to the patient at discharge to home.
--- NOTE | 2019-01-25 18:26 | Cardiac Catheterization ---
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 Prior to surgery today developed new anterior ST depressions, anterior wall motion abnormality and elevated troponin. No significant chest pain. Hemodynamically stable. Access: 6 Fr right radial artery Catheters: [place] Findings: LM -heavily calcified, distal 90 to 95% acute on chronic distal LM prior to bifurcation LAD - heavily calcified, 90% proximal disease, 40-50% mid segment disease. No significant disease as wraps around apex. very small 1st diagonal with 99% ostial stenosis. moderate caliber 2nd diagonal with 40% proximal disease. Circumflex - Moderate caliber vessel. 20-30% proximal disease. Small high OM1 with severe diffuse disease/ RCA - Dominant, moderate caliber, 30-40% mid segment disease. LVEDP - 14 Arterial Closure: TR Band Summary: 1. Severe acute on chronic distal LM/proximal LAD disease 2. Normal intracardiac filling pressure Recommendations: Transfer to tertiary center for consideration of CABG versus high-risk complex PCI. Start heparin and nitro infusion. Hemodynamics Rest Ao:: 131/53/85 Final Ao: 130/56/86 LV: 122/14 Recommendations Recommendations: PCI without planned CABG Specimens Specimens: None Radiation Exposure (mGy) 676 Contrast (mls) 50 Fluids (cc crystalloids) Fluids (cc crystalloids): 20 Drains Drains: none Anesthesia moderate Procedural Complication(s) None Disposition ICU ACC Data: Software Applications Specialist Cardiac Status Clinical evaluation leading to the procedure CAD Presenation: Non STEMI Anginal Classification: CCS IV Heart Failure: No Cardiogenic Shock within 24 Hours: No Cardiac Arrest within 24 Hours: No Imaging Studies Past 6 Months: Yes Stress Studies Past 6 Months: No Diagnostic Physicians Name: Alexandre Allison MD Status: Urgent Closure Device Percutaneous Entry Location: Radial Closure Device: Radial Band Recommendations: PCI without planned CABG Intraprocedure Events Significant Disection: No Perforation: No
--- NOTE | 2019-01-25 18:49 | Discharge Summary ---
Date of Service January 25, 2019 Admission HPI Per Admitting Provider Chay is an 88-year-old male with past history of BPH who presents after mechanical fall at home and right femur fracture. He has full memory of the event and states that he was in his kitchen preparing food when he turned away from the counter and slipped on the linoleum, caught himself by both hands but then his right hip hit the floor. He states he was able to lift himself up off the floor afterwards with the aid of a chair, was able to point his toes with both feet, but was unable to bear any weight. He was brought in to the emergency room for further management. Otherwise he states he has no other symptoms including headache, blurred vision, chest pain, difficulty breathing, abdominal pain, diarrhea or constipation. He endorses some loss of sensation in his right foot. His and daughter are at the bedside. Past surgical history includes Mohs surgery on his right face for basal cell cancer. Social history includes independent with ADLs, jogs, is very active. Retired consulting solution manager. ED course: Hip and pelvis x-ray show impacted subcapital fracture of the right femur. Labs are otherwise unremarkable. Has been given 4 mg of morphine and tolerated this well. Principal Diagnosis Severe CAD, NSTEMI, Right hip fracture, Discharge Exam Constitutional WD/WN, vitals as above Eyes PERRL, conjunctivae normal, anicteric sclerae Neck trachea midline, no thyromegaly Respiratory normal respiratory effort, lungs clear to auscultation Cardiovascular Rate/Rhythm: regular rate and regular rhythm Heart Sounds: + murmur (3/6 holosystolic murmur at apex) Gastrointestinal (Abdomen) normal bowel sounds, soft, nontender, no hepatosplenomegaly Musculoskeletal Extremities: + extremities abnormal to inspection (mild shortening of RLE, no TTP over right hip), no cyanosis and no clubbing Skin no rashes, warm and dry Neurologic moves all extremities (can move feet, not moving right hip) and awake Psychiatric Orientation: alert, oriented to person, oriented to place and cooperative Insight: good insight Judgement: good judgement Genitourinary no testicular masses, no penis abnormality (with condom catheter in place) Discharge Data Allergies Allergy/AdvReac Type Severity Reaction Status Date / Time thimerosal Allergy Unknown HIVES Unverified 01/24/19 22:25 Consultations 01/24/19 21:54 ED Decision to Admit Stat 01/24/19 23:56 Consult Case Management - Discharge Planning Routine Consult Orthopedic Surgery Routine 01/25/19 15:46 Consult Cardiology Routine 01/25/19 18:42 Burn CD for patient Stat Procedures Performed Operation Date: 01/25/19 13:30 Actual Procedures p Right Anterior Hip Hemiarthroplasty(Right) - Mario Contreras, Operation Date: 01/25/19 17:30 Actual Procedures s Cineradiography w/Routine Exam - Willy Allison MD p Cath, Left with Cors and Vent - Willy Allison MD Ordered Studies 01/25/19 17:22 CL Cath Imgs for PACS use only Stat CXR ECHO x 2 Hospital Course (1) Hip fracture: This pt is an 88-year-old male with a h/o prostate CA and enlarged prostate here with mechanical fall and subsequent right femur fracture. Appreciate Ortho management-plan for surgery today but then had NH as was about to have surgery-surgery aborted -pain control, bowel regimen -management as per Ortho after cardiac issues improved (2) NSTEMI (non-ST elevated myocardial infarction): Had ECHO on admission for preop due to murmur on exam which showed mitral valve prolapse and moderate MR, mod PHTN, preserved EF 50-55% with mild hypokinesis mid-apical wall. He has no known history of CAD and regularly jogs in his basement without difficulty or angina. He went for surgery today and after receiving sedation for his spinal, he had noted ST depressions on monitor and ECG confirmed anterolateral ST depressions. Repeat limited ECHO showed new WMAs in LAD distribution and reduced EF 35%, troponin was 1.4 Cardiac cath with 95% left main disease likely acute on chronic, normal filling pressure on left He developed acute hypoxic resp failure requiring 13L by facemask to maintain sats at 91% and was intubated for airway protection for flight to [facility]. Due to complex lesion and disease and not being a good candidate for CABG, Angiography Nurse here recommended transfer for possible complex intervention at his lesion at [facility]. He was hemodynamically stable throughout. Heparin gtt and Nitro gtt were started after cath. (3) CAD (coronary artery disease), [place] coronary artery: as above (4) Systolic CHF: as above (5) Acute respiratory failure with hypoxia: as above (6) Fall: mechanical fall leading to hip fracture on admission (7) History of prostate cancer: -is on lupron (8) Mitral regurgitation: moderate on ECHO, with murmur Follow clinically and as outpt (9) Mitral valve prolapse: on ECHO (10) Pulmonary hypertension: on ECHO, not limiting, no chronic lung disease, unclear cause (11) DVT prophylaxis: SCDs, heparin gtt Dispo-tranfer urgently by life flight to [facility] for further management as above Accepting physician is Dr. Preciado Total Time Total Time Spent Total Time Spent (In Minutes): >30 min Total Time Includes: Examination of the Patient, Discharge Planning, Medication Reconciliation and Communication With Other Providers (Cardiology) Discharge Plan Discharge Items Patient Disposition: Transfer Acute Care Hospital Reason For Visit: RT HIP FRACTURE Discharge Diagnosis: NSTEMI,Severe CAD, Hip fracture Condition: Critical Discharge Goals: Decrease discomfort, Diagnostic testing, Improve disease control, Learn about illness and Therapeutic intervention Activity: As commented below Lifting: None Exercise/Sports: Rest today Non-emergency contact: Primary Care Provider, Surgeon and Angiography Nurse Call non-emergency contact if: you have any medication questions and your symptoms worsen Follow-up/Referrals: Edi Núñez MD [Primary Care Provider] - Diet: Nothing by mouth Addtl Provider Instructions: Transferred to [facility] Prescriptions: New metoprolol tartrate [Lopressor] 5 mg/5 mL Solution 5 mg IV Q6H Qty: 5 RF: 0 Continued aspirin [Aspir-81] 81 mg Tablet,Delayed Release (Dr/Ec) 81 mg PO DAILY RF: 0 leuprolide 15 mg Kit 30 mg IM Q6M RF: 0 Stand-Alone Forms: [facility] Discharge Orders: Discharge Order (Routine); Ordered 01/25/19 Ordered By: Rosette Duffy Admission Data Admit Date/Time: 01/24/19 22:44 Attending Provider: Rosette Duffy Admit Provider: Africa Gilbert Primary Care Provider: Edi Núñez Other Providers: Papa Patino ; Riley Medina ; Willy Black ; Mario Hercules Service: Intensive Care Unit Other Pending Studies at Discharge: No
[2019-01-25] MEDS ORDERED: RAPID SEQUENCE INDUCTION BAG ONE (19:00)
[2019-01-25] MEDS ORDERED: PHENYLEPHRINE HCL 10 MG/ML VIAL ONE (19:04)
--- NOTE | 2019-01-25 19:05 | Cardiology Consultation ---
Date of Consultation January 25, 2019 Assessment & Plan (1) NSTEMI (non-ST elevated myocardial infarction): 2. Severe acute on chronic distal left main/proximal LAD disease 3. New moderate LV dysfunction, EF 35 to 40% 4. At least moderate eccentric mitral regurgitation 5. Moderate pulmonary hypertension 6. Frequent PVCs 7. Right hip fracture Difficult situation. Patient with heavily calcified, severe distal left main disease. Suspect probably will not be a bypass surgery candidate but recommend evaluation by cardiac surgery. If not a surgical candidate would likely need high risk complex PCI potentially requiring atherectomy and hemodynamic support. Have discussed with [facility] cardiology. They are willing to accept care patient. Will start on heparin and nitroglycerin infusion. With tenuous oxygenation we will plan on intubation prior to transport. Transport via air. Situation discussed with hospitalist, manufacturing engineering technologist and family extensively. History of Present Illness Attending Physician: Rosette Duffy MD History of Present Illness Mr. Mckenzie is a very pleasant 88-year-old man with no prior cardiac history admitted yesterday in the setting of mechanical fall and right hip fracture. Cardiology consulted for dynamic EKG changes. Patient was to undergo right hip fracture repair with orthopedics. Had received ketamine with anesthesia when noted to have new ST depressions on telemetry. EKG confirmed new anterior lateral ST depressions. Repeat echocardiogram showed new anterior, apical severe hypokinesis to akinesis with EF 35%.Troponin elevated at 1.48. He underwent cardiac catheterization which showed AIDAN-3 flow but severe, acute on chronic, heavily calcified 90 to 95% distal left main into proximal LAD disease. LVEDP 14 During all of this patient chest pain-free and hemodynamic is stable. Intermittent PVCs on telemetry. Requiring 10+ liters to maintain O2 sats in low 90s. Patient endorses episode of chest pressure about 2 weeks ago which started baby aspirin. Since that time has resumed his baseline activities including jogging, tennis without symptoms. Allergies Allergy/AdvReac Type Severity Reaction Status Date / Time thimerosal Allergy Unknown HIVES Unverified 01/24/19 22:25 Home Medications Home Medications Medication Instructions Recorded Confirmed Type aspirin [Aspir-81] 81 mg PO DAILY 01/24/19 01/24/19 History leuprolide 30 mg IM Q6M 01/24/19 01/24/19 History metoprolol tartrate [Lopressor] 5 mg IV Q6H #5 ml 01/25/19 Rx Patient History Medical History No chronic problems Family History Other No significant family history Social History Preferred Language: Hebrew Communication Ability: Effective Supervisor Seaming Required: No Beliefs That Will Affect Care: Adventism Adventism Beliefs: Christianity Current Living Situation: Alone Current Living Situation Comment: [place] ~ 4 days/week Other Information That Helps Us Care for You: No Feels Safe at Home: Yes Safety Concerns: Feels Safe At This Time Smoking Status: Never smoker Do You Dip or Chew Tobacco: No Hx Alcohol Use: No Hx Substance Use: No Review of Systems Review of Systems: All systems reviewed & are unremarkable except as noted in HPI & below Physical Exam Physical Exam: General: Comfortable, no acute distress Eyes: Sclerae anicteric, extraocular movements intact HENT: Oropharynx clear mucous membranes moist Lungs: Clear to auscultation bilaterally, no rhonchi or wheezes Cardiac: Regular rate and rhythm, 3/6 holosystolic murmur heard best at the apex Vascular: 2+ radial Bilaterally Abdomen: Soft, nontender, nondistended, positive bowel sounds. Skin: No rashes or lesions. Neuro: Nonfocal Psych: Alert orient x3, normal affect and mood Results & Data Vital Signs (Past 12 Hours) Vital Signs Temp Pulse Pulse Pulse Resp BP BP 01/25/19 18:38 74 139/78 01/25/19 16:35 36.3 C L 67 19 140/73 01/25/19 16:25 66 16 147/79 H 01/25/19 16:15 72 18 153/73 H 01/25/19 16:11 80 135/75 01/25/19 16:05 81 12 136/62 01/25/19 15:55 85 17 162/86 H 01/25/19 15:48 36.1 C L 82 13 164/89 H 01/25/19 14:51 36.5 C 77 16 01/25/19 08:08 140/67 01/25/19 07:15 37.1 C 65 16 BP Pulse Ox 01/25/19 18:38 01/25/19 16:35 95 01/25/19 16:25 94 01/25/19 16:15 95 01/25/19 16:11 01/25/19 16:05 92 01/25/19 15:55 96 01/25/19 15:48 92 01/25/19 14:51 147/78 H 90 01/25/19 08:08 01/25/19 07:15 180/76 H 93 Diagnostic Findings Echo a.m. 01/25/2019: LVEF 50 to 55%, mild hypokinesis involving inferior mid to apical wall. Mitral valve prolapse with at least moderate eccentric mitral regurgitation. Moderate pulmonary hypertension, estimated PASP 50 to 55 mmHg. Echo p.m. 01/25/2019: LVEF 35 to 40%, apical LAD distribution severe hypokinesis to akinesis. Moderate eccentric mitral regurgitation
--- NOTE | 2019-01-25 19:27 | Procedure Note ---
Procedure Note Date of Service January 25, 2019 Procedure Date: Noted above Procedure: Endotracheal intubation Pre-procedure Diagnosis: Acute hypoxic respiratory failure Post-procedure Diagnosis: same as above Prior to Procedure: Informed Consent: emergent Attending Staff: Elaina Hercules DO The identity of the patient was confirmed and a bedside time out was performed. Description of Procedure: Patient was evaluated and required intubation for impending respiratory failure. The patient was prepared in the usual fashion. A Torres to laryngoscope was used, there were rather anterior cords I transition to a MAC 4 and was still unable to get adequate visualization of the cords and transition to a glide scope. Patient's starting oxygen saturation was 90% he desaturated to 88% at the lowest. A 8.0 mm inner diameter endotrachial tube was placed endotracheally to 24 cm at the teeth. A grade 1 view was obtained. The endotracheal tube was noted to pass through the vocal cords. Chest rise was bilateral. Bilateral breath sounds were heard without air sounds in the abdomen. Mist was noted in the endotracheal tube. End-tidal CO2 measurement was positive. Chest x-ray shows proper endotracheal tube placement. Sedation given were 25 mg of ketamine x2 and 25 mcg of fentanyl. After the tube was placed he was given another 25 mg of ketamine and 25 mcg fentanyl. There was no hypotension with that medication administration. Complications: None Findings: Not applicable Specimens: Not applicable Estimated blood loss: Zero Coding
--- NOTE | 2019-01-25 19:36 | Critical Care Consultation ---
Date of Consultation January 25, 2019 Assessment & Plan (1) Acute respiratory failure with hypoxia: Reason Critically Ill: Dynamic EKG changes with acute hip fracture and acute hypoxic respiratory failure PLAN: Neuro: Analgesia -Fentanyl PRN Resp: Acute hypoxic respiratory failure -Reviewed chest x-ray, question fat emboli secondary to fracture -Discussed with cardiology less likely CHF CV: Dynamic EKG changes Status post cardiac cath Elevated troponin -Transfer to [facility] Fluids/Renal: Elevated creatinine -Unclear baseline GI/Nutrition: N.p.o. Heme: Mild anemia hemoglobin 12.9 DVT prophylaxis: Heparin infusion for cardiac prophylaxis Vascular access: Peripheral IVs Code Status: Full code I have personally spent 35 minutes of critical care time in the direct management of this patient. This is a life/limb threatening event. This includes time spent evaluating patient, direct bedside care, chart review, placing orders, interpretation of diagnostic studies, discussion with consultants, patient, and/or family members regarding treatment decisions, as well as other required patient management activities. This time is exclusive of all separately billable procedures, and teaching time and separate from and in addition to any other critical care service time. Present on Admission?: No (2) NSTEMI (non-ST elevated myocardial infarction): Present on Admission?: No (3) CAD (coronary artery disease), [place] coronary artery: Present on Admission?: Yes (4) Mitral valve prolapse: Present on Admission?: Yes (5) Hip fracture: History of Present Illness Attending Physician: Rosette Duffy MD Patient is an 88-year-old male who suffered a mechanical fall today and was seen by the emergency department diagnosed with a hip fracture. During operative planning he was noted to have a change in his EKG rhythm and subsequent EKGs showed it dynamic changes. He was taken to the cardiac Tele[facility]oner. He ultimately needs advanced interventions at the [facility] and is being transferred to [facility]. Allergies Allergy/AdvReac Type Severity Reaction Status Date / Time thimerosal Allergy Unknown HIVES Unverified 01/24/19 22:25 Home Medications Home Medications Medication Instructions Recorded Confirmed Type aspirin [Aspir-81] 81 mg PO DAILY 01/24/19 01/24/19 History leuprolide 30 mg IM Q6M 01/24/19 01/24/19 History metoprolol tartrate [Lopressor] 5 mg IV Q6H #5 ml 01/25/19 Rx Patient History Medical History No chronic problems Family History Other No significant family history Social History Preferred Language: Turkish Communication Ability: Effective Match Marker Required: No Beliefs That Will Affect Care: Episcopalian Episcopalian Beliefs: Nondenominational Current Living Situation: Alone Current Living Situation Comment: [place] ~ 4 days/week Other Information That Helps Us Care for You: No Feels Safe at Home: Yes Safety Concerns: Feels Safe At This Time Smoking Status: Never smoker Do You Dip or Chew Tobacco: No Hx Alcohol Use: No Hx Substance Use: No Review of Systems Review of Systems: Unobtainable due to reduced consciousness (Secondary to recent morphine administration) Physical Exam Physical Exam: General: Alert. nontoxic. Altered mental status secondary to morphine administration Skin: Warm, dry, Head: Atraumatic Ears, nose, mouth and throat: airway patent, mucous membranes are dry Cardiovascular: Normal peripheral perfusion Respiratory: no respiratory distress Gastrointestinal: Non distended Musculoskeletal: No deformity Results & Data Vital Signs (Past 12 Hours) Vital Signs Temp Pulse Pulse Pulse Resp BP BP 01/25/19 19:17 90 24 170/96 H 01/25/19 19:15 93 H 24 161/106 H 01/25/19 19:13 87 27 H 161/102 H 01/25/19 19:11 73 10 L 141/73 H 01/25/19 19:00 74 15 139/90 01/25/19 18:55 71 16 116/67 01/25/19 18:45 69 17 129/70 01/25/19 18:38 74 139/78 01/25/19 18:30 72 7 L 139/78 01/25/19 18:27 73 11 L 144/79 H 01/25/19 18:24 76 13 144/92 H 01/25/19 17:16 67 9 L 133/70 01/25/19 16:35 36.3 C L 67 19 140/73 01/25/19 16:25 66 16 147/79 H 01/25/19 16:15 72 18 153/73 H 01/25/19 16:11 80 135/75 01/25/19 16:05 81 12 136/62 01/25/19 15:55 85 17 162/86 H 01/25/19 15:48 36.1 C L 82 13 164/89 H 01/25/19 14:51 36.5 C 77 16 01/25/19 08:08 140/67 BP Pulse Ox 01/25/19 19:17 88 L 01/25/19 19:15 88 L 01/25/19 19:13 89 L 01/25/19 19:11 91 01/25/19 19:00 90 01/25/19 18:55 90 01/25/19 18:45 88 L 01/25/19 18:38 01/25/19 18:30 90 01/25/19 18:27 90 01/25/19 18:24 93 01/25/19 17:16 95 01/25/19 16:35 95 01/25/19 16:25 94 01/25/19 16:15 95 01/25/19 16:11 01/25/19 16:05 92 01/25/19 15:55 96 01/25/19 15:48 92 01/25/19 14:51 147/78 H 90 01/25/19 08:08 PG Care Time/CCT Total # of Minutes Spent Total Time Spent: 35 Total Time Spent with Patient: Total time spent is greater than 50% in coordination of care (as documented) at patient's floor/unit and/or counseling patient: (1) Hip fracture Encounter type: initial encounter Fracture type: closed Laterality: right Qualified Code(s): S72.001A - Fracture of unspecified part of neck of right femur, initial encounter for closed fracture
[2019-01-25] MEDS ORDERED: KETAMINE HCL INJ 50 MG/ML 10 ML VIAL IV ONE (19:59)
[2019-01-25] MEDS ORDERED: VECURONIUM BROMIDE 10 MG VIAL IV ONE (19:59)
[2019-01-25] MEDS ORDERED: fentaNYL citrate 100 MCG/2 ML SYRINGE IV ONE (19:59)
--- NOTE | 2019-01-25 19:59 | XRay Report ---
XR chest 1V portable CLINICAL HISTORY: Respiratory failure COMPARISON STUDY: 01/25/2019 FINDINGS: The heart remains mildly enlarged. There is no focal pulmonary consolidation. There are no pleural effusions. There is no overt failure. There has been interval placement of an endotracheal tu be 5.7 cm above the lance. There has been placement of a nasogastric tube which passes into the stom ach.[The proximal sidehole is located at the esophagogastric junction IMPRESSION: 1. Interval placement of an endotracheal tube 5.7 cm above the lance 2. Nasogastric tube which passes into the stomach 3. No evidence of acute parenchymal consolidation 3. No evidence of focal pulmonary consolidation Electronically signed by: Kashmir Liao M.D. 01/25/2019 7:57 PM
== END 2019-01-25 20:00 | disposition short-term general hospital (02) | DRG 535 ==
LOC: ED 20:34 → 3N 22:44 → SUATTDRO 22:44 → 3N 23:30 → 2E 01-25 15:55 → 1E 01-25 18:26